=== PATIENT | male | born 1995 | race Caucasian/White ===

== ENCOUNTER → 2017-02-20 | Outpatient (CLI) | payer BC ==
--- NOTE | 2017-02-20 09:06 | DIAGNOSTIC IMAGING REPORT ---
CT OF THE ABDOMEN AND PELVIS WITHOUT CONTRAST CLINICAL HISTORY: Left inguinal pain. Possible hernia. COMPARISON STUDY: No previous studies for comparison. TECHNIQUE: Axial images of the abdomen and pelvis were obtained without IV contrast. Images were reviewed in the axial, sagittal, and coronal planes. FINDINGS: Lung bases are clear. No renal, ureteral or bladder calculi are identified. Pelvic calcifications reflect phleboliths. There is no hydronephrosis. Evaluation of the abdomen and pelvis is suboptimal on this unenhanced exam. The liver, spleen, adrenal glands and pancreas are normal. There is no evidence for a bowel obstruction. No adenopathy or ascites is present. No inguinal hernia is identified by CT. There is subtle infiltration anterior to the left spermatic cord which is likely postsurgical. There is no fluid collection. Skeletal structures are unremarkable. IMPRESSION: 1. No acute process within the abdomen or pelvis on unenhanced exam. 2. No inguinal hernia identified. 3. Subtle subcutaneous infiltration anterior to the left spermatic cord which likely reflects expected postsurgical findings. No fluid collection. Electronically signed by: Perfecto Dobbs M.D. 02/20/2017 9:05 AM Dictated Date/Time: 02/20/2017 8:59 AM
== END | disposition home or self-care (01) ==
LOC: C.CTS 08:49
PROVIDERS: ATTEND Family Medicine
DX: R10.32 Left lower quadrant pain (principal)

== ENCOUNTER 2017-12-10 13:18 | Emergency (ER) | payer BC ==
[~2017-12-10] VITALS: Ht 175.3 cm; Wt 66.7 kg
[2017-12-10 13:22] VITALS: TEMP 37.1; Ht 175.3 cm; Wt 66.7 kg
[2017-12-10] MEDS ORDERED: SODIUM CHLORIDE 0.9% 1000ML 1,000 ML IV STA (14:09)
[2017-12-10] MEDS ORDERED: KETOROLAC TROMETHAMINE 30 MG/ML VIAL IV STA (14:09)
--- NOTE | 2017-12-10 14:21 | EMERGENCY ROOM VISIT NOTE ---
History First contact with patient: 13:49 Chief Complaint: RIB PAIN Stated Complaint: SHARP PAIN IN LEFT LUNG WHEN BREATHING History of Present Illness The patient is a 22 year old male with hx of exercise induced asthma who presents to the Emergency Room with complaints of L sided chest/rib pain that started around 12:30pm today. Described as sharp 8/10 and lasted about 45 minutes. Pain improved on the way to the ED and now 1-2/10 and dull. Associated with mild dizziness and sob. Denies any trauma or falls. No recent long drives/ travelling. No known sick contacts. Was sitting and working at the time it started. Otherwise asymptomatic. Takes albuterol and marii. Review of Systems see below Constitutional: No fever Respiratory: + shortness of breath Cardiovascular: + chest pain (L sided rib/chest pain) Abdomen: No pain, No nausea, No vomiting, No diarrhea, No constipation Genitourinary - Male: No dysuria Social History Smoking Status: Never Smoker Current/Historical Medications Scheduled Fexofenadine Hcl (Marii Allergy), 1 TAB PO DAILY Physical Exam Vital Signs Date Time Temp Pulse Resp B/P (MAP) Pulse Ox O2 Delivery O2 Flow Rate FiO2 12/10/17 14:28 55 16 132/66 98 Room Air 12/10/17 13:22 37.1 77 18 143/74 97 Room Air Physical Exam see below General Appearance: no apparent distress Head: normocephalic, atraumatic Eyes: normal inspection ENT: normal ENT inspection Neck: supple Respiratory/Chest: lungs clear, normal breath sounds, + pertinent finding ( L sided 8th rip region TTP) Cardiovascular: regular rate, rhythm, no murmur Abdomen / GI: normal bowel sounds, non tender, soft Back: normal inspection, no CVA tenderness Extremities: normal inspection, no pedal edema Neurologic/Psych: alert Medical Decision & Procedures Laboratory Results 12/10/17 14:28 Red Blood Count 4.98, Mean Corpuscular Volume 86.9, Mean Corpuscular Hemoglobin 31.9, Mean Corpuscular Hemoglobin Concent 36.7, Mean Platelet Volume 9.9, Neutrophils (%) (Auto) 53.8, Lymphocytes (%) (Auto) 36.2, Monocytes (%) (Auto) 6.9, Eosinophils (%) (Auto) 2.1, Basophils (%) (Auto) 0.8, Neutrophils # (Auto) 2.57, Lymphocytes # (Auto) 1.73, Monocytes # (Auto) 0.33, Eosinophils # (Auto) 0.10, Basophils # (Auto) 0.04 12/10/17 14:28 Test 12/10/17 14:28 White Blood Count 4.78 K/uL (4.8-10.8) Red Blood Count 4.98 M/uL (4.7-6.1) Hemoglobin 15.9 g/dL (14.0-18.0) Hematocrit 43.3 % (42-52) Mean Corpuscular Volume 86.9 fL (80-100) Mean Corpuscular Hemoglobin 31.9 pg (25-34) Mean Corpuscular Hemoglobin Concent 36.7 g/dl (32-36) Platelet Count 185 K/uL (130-400) Mean Platelet Volume 9.9 fL (7.4-10.4) Neutrophils (%) (Auto) 53.8 % Lymphocytes (%) (Auto) 36.2 % Monocytes (%) (Auto) 6.9 % Eosinophils (%) (Auto) 2.1 % Basophils (%) (Auto) 0.8 % Neutrophils # (Auto) 2.57 K/uL (1.4-6.5) Lymphocytes # (Auto) 1.73 K/uL (1.2-3.4) Monocytes # (Auto) 0.33 K/uL (0.11-0.59) Eosinophils # (Auto) 0.10 K/uL (0-0.5) Basophils # (Auto) 0.04 K/uL (0-0.2) RDW Standard Deviation 41.3 fL (36.4-46.3) RDW Coefficient of Variation 12.9 % (11.5-14.5) Immature Granulocyte % (Auto) 0.2 % Immature Granulocyte # (Auto) 0.01 K/uL (0.00-0.02) Anion Gap 7.0 mmol/L (3-11) Est Creatinine Clear Calc Drug Dose 114.8 ml/min Estimated GFR () 130.4 Estimated GFR (Non- 112.5 BUN/Creatinine Ratio 16.0 (10-20) Calcium Level 9.2 mg/dl (8.5-10.1) Total Bilirubin 2.1 mg/dl (0.2-1) Direct Bilirubin 0.3 mg/dl (0-0.2) Aspartate Amino Transf (AST/SGOT) 25 U/L (15-37) Alanine Aminotransferase (ALT/SGPT) 26 U/L (12-78) Alkaline Phosphatase 60 U/L (45-117) Troponin I < 0.015 ng/ml (0-0.045) Total Protein 7.4 gm/dl (6.4-8.2) Albumin 4.5 gm/dl (3.4-5.0) Lipase 120 U/L (73-393) Medications Administered Medications (Trade) Dose Ordered Sig/Shen Route Start Time Stop Time Status Last Admin Dose Admin Sodium Chloride 1,000 ml @ 999 mls/hr Q1H1M STAT IV 12/10/17 14:09 12/10/17 15:09 DC 12/10/17 14:09 999 MLS/HR Medical Decision 22y/oM with hx of exercise induced asthma presents with L sided chest/rib pain x 2 hours. Pain now improved. Based on history and exam findings, concerning for possible costochondritis vs. pneumonia vs. pericarditis vs. ACS/MN vs. PE ( given worsening pain with deep breathing). Based on PERC score of 0, no need for further work up for PE. Also low HEART score for major cardiac events. Consistent with costochondritis based on work up below and clinical improvement. -Ordered CXR - negative -Ordered CBC, BMP, LFT, Lipase - wnl mild elevation in total bili or 1.2 likely in the setting of mild dehydration -Ordered EKG - rate 57 sinus bradycardia -Ordered Troponin - negative -Given NS 1L IVF -Given Toradol 15mg IV for pain - refused due to no pain -Re-evaluated at 15:28 and reports resolution of pain and feeling better post IVF -Pt ready to be discharged home with PCP follow up Medication Reconcilliation Current Medication List: was personally reviewed by me Blood Pressure Screening Patient's blood pressure: Elevated blood pressure Impression Primary Impression: Costochondritis Resident Involvement: Resident Care Provided Care Provided: Adult ED Departure Information Dispostion Home / Self-Care Condition GOOD Patient Instructions [facility] Additional Instructions Follow up with your primary care provider in 1-2 days Take ibuprofen up to 800mg every 8 hours as needed for pain on a full stomach School Instructions Additional School Instructions: Patient evaluated for medical condition in the ED on 12/10/17 please excuse for missing school.
--- NOTE | 2017-12-10 14:30 | DIAGNOSTIC IMAGING REPORT ---
CHEST ONE VIEW PORTABLE CLINICAL HISTORY: CHEST PAIN dyspnea COMPARISON STUDY: No previous studies for comparison. FINDINGS: The bones soft tissues and hemidiaphragms are normal. The cardiomediastinal silhouette is normal. The lungs are clear. The pulmonary vasculature is normal. IMPRESSION: Negative chest. The above report was generated using voice recognition software. It may contain grammatical, syntax or spelling errors. Electronically signed by: Jonny Beavers M.D. 12/10/2017 2:29 PM Dictated Date/Time: 12/10/2017 2:28 PM
[2017-12-10] MEDS ORDERED: FEXO1TAB49 PO (15:02)
[2017-12-10 15:12] LABS: ALBUMIN 4.5 gm/dl (3.4-5.0); ALT/SGPT 26 U/L (12-78); AST/SGOT 25 U/L (15-37); BLOOD UREA NITROGEN 15 mg/dl (7-18); CALCIUM 9.2 mg/dl (8.5-10.1); CARBON DIOXIDE 26 mmol/L (21-32); CREATININE 0.96 mg/dl (0.60-1.40); GLUCOSE 80 mg/dl (70-99); LIPASE 120 U/L (73-393); POTASSIUM 3.6 mmol/L (3.5-5.1); SODIUM 139 mmol/L (136-145)
[2017-12-10 15:17] LABS: ALKALINE PHOSPHATASE 60 U/L (45-117); TOTAL PROTEIN 7.4 gm/dl (6.4-8.2)
[2017-12-10 15:30] LABS: BASO % 0.8 %; BASO ABS # 0.04 K/uL (0-0.2); EOS % 2.1 %; HEMATOCRIT 43.3 % (42-52); HEMOGLOBIN 15.9 g/dL (14.0-18.0); IG# 0.01 K/uL (0.00-0.02); LYMPH % 36.2 %; LYMPH ABS # 1.73 K/uL (1.2-3.4); MEAN CELL VOLUME 86.9 fL (80-100); MEAN CORPUSCULAR HEMOGLOBIN 31.9 pg (25-34); MEAN CORPUSCULAR HGB CONC 36.7 g/dl (32-36); MEAN PLATELET VOLUME 9.9 fL (7.4-10.4); MONO % 6.9 %; MONO ABS # 0.33 K/uL (0.11-0.59); NEUT % 53.8 %; NEUT ABS # 2.57 K/uL (1.4-6.5); PLATELET COUNT 185 K/uL (130-400); RED CELL DISTRIBUTION WIDTH CV 12.9 % (11.5-14.5); RED CELL DISTRIBUTION WIDTH SD 41.3 fL (36.4-46.3); WHITE BLOOD COUNT 4.78 K/uL (4.8-10.8)
[2017-12-10 16:16] VITALS: BP 128/67; PULSE 61; O2SAT 98
--- NOTE | 2017-12-10 16:22 | EMERGENCY ROOM VISIT NOTE ---
History Report prepared by Greg: Neeraj Santos Under the Supervision of: Dr. Bryson Matta M.D. First contact with patient: 13:49 Chief Complaint: RIB PAIN Stated Complaint: SHARP PAIN IN LEFT LUNG WHEN BREATHING History of Present Illness The patient is a 22 year old male who presents to the Emergency Room with complaints of sudden onset left rib pain starting around 1230 The patient states that the pain was an 8/10 in severity and sharp, though it is now a 1/10 and dull. He states that the pain is worse with breathing. The patient reports that he has been mildly dizzy and short of breath. He denies any recent trauma, and he states that the pain came on while studying at a computer. The patient denies any recent long travel or exposure to sickness. He denies any cough. The patient has a history of asthma, and he states that he uses an inhaler daily, though he has had no problems with it recently. He denies any family history of heart attacks at a young age, and he does not smoke or use drugs. He notes that uses alcohol occasionally. The patient states that he works out regularly, and the last time he worked out was three days ago, and it was nothing out of the ordinary for him. Source of History: patient Onset: 1230 Position: other (left rib) Symptom Intensity: 8/10 now a 1/10 Quality: sharp, dull Timing: other (sudden) Modifying Factors (Worsening): breathing Associated Symptoms: + SOB, No cough Note: Associated symptoms: Dizziness Review of Systems See HPI for pertinent positives and negatives. A total of ten systems were reviewed and were otherwise negative. Past Medical & Surgical Medical Problems: (1) Asthma Social History Smoking Status: Never Smoker Alcohol Use: occasionally Housing Status: lives with roommate Occupation Status: [employer] student Current/Historical Medications Scheduled Fexofenadine Hcl (Marii Allergy), 1 TAB PO DAILY Physical Exam Vital Signs Date Time Temp Pulse Resp B/P (MAP) Pulse Ox O2 Delivery O2 Flow Rate FiO2 12/10/17 16:16 61 18 128/67 98 12/10/17 14:28 55 16 132/66 98 Room Air 12/10/17 13:22 37.1 77 18 143/74 97 Room Air Physical Exam GENERAL: Awake, alert, well-appearing, in no distress HENT: Normocephalic, atraumatic. Oropharynx unremarkable. EYES: Normal conjunctiva. Sclera non-icteric. NECK: Supple. No nuchal rigidity. FROM. No JVD. RESPIRATORY: Clear to auscultation. CARDIAC: Regular rate, normal rhythm. Extremities warm and well perfused. Pulses equal. ABDOMEN: Soft, non-distended. No tenderness to palpation. No rebound or guarding. No masses. RECTAL: Deferred. MUSCULOSKELETAL: Chest examination with mild reproducible anterior CW ttp. The back is symmetrical on inspection without obvious abnormality. There is no CVA tenderness to palpation. No joint edema. LOWER EXTREMITIES: Calves are equal size bilaterally and non-tender. No edema. No discoloration. NEURO: Normal sensorium. No sensory or motor deficits noted. SKIN: No rash or jaundice noted. Medical Decision & Procedures ER Provider Diagnostic Interpretation: Radiology results as stated below per my review and radiologist interpretation: CHEST ONE VIEW PORTABLE CLINICAL HISTORY: CHEST PAIN dyspnea COMPARISON STUDY: No previous studies for comparison. FINDINGS: The bones soft tissues and hemidiaphragms are normal. The cardiomediastinal silhouette is normal. The lungs are clear. The pulmonary vasculature is normal. IMPRESSION: Negative chest. The above report was generated using voice recognition software. It may contain grammatical, syntax or spelling errors. Electronically signed by: Jonny Beavers M.D. 12/10/2017 2:29 PM Dictated Date/Time: 12/10/2017 2:28 PM Laboratory Results 12/10/17 14:28 Red Blood Count 4.98, Mean Corpuscular Volume 86.9, Mean Corpuscular Hemoglobin 31.9, Mean Corpuscular Hemoglobin Concent 36.7, Mean Platelet Volume 9.9, Neutrophils (%) (Auto) 53.8, Lymphocytes (%) (Auto) 36.2, Monocytes (%) (Auto) 6.9, Eosinophils (%) (Auto) 2.1, Basophils (%) (Auto) 0.8, Neutrophils # (Auto) 2.57, Lymphocytes # (Auto) 1.73, Monocytes # (Auto) 0.33, Eosinophils # (Auto) 0.10, Basophils # (Auto) 0.04 12/10/17 14:28 Test 12/10/17 14:28 White Blood Count 4.78 K/uL (4.8-10.8) Red Blood Count 4.98 M/uL (4.7-6.1) Hemoglobin 15.9 g/dL (14.0-18.0) Hematocrit 43.3 % (42-52) Mean Corpuscular Volume 86.9 fL (80-100) Mean Corpuscular Hemoglobin 31.9 pg (25-34) Mean Corpuscular Hemoglobin Concent 36.7 g/dl (32-36) Platelet Count 185 K/uL (130-400) Mean Platelet Volume 9.9 fL (7.4-10.4) Neutrophils (%) (Auto) 53.8 % Lymphocytes (%) (Auto) 36.2 % Monocytes (%) (Auto) 6.9 % Eosinophils (%) (Auto) 2.1 % Basophils (%) (Auto) 0.8 % Neutrophils # (Auto) 2.57 K/uL (1.4-6.5) Lymphocytes # (Auto) 1.73 K/uL (1.2-3.4) Monocytes # (Auto) 0.33 K/uL (0.11-0.59) Eosinophils # (Auto) 0.10 K/uL (0-0.5) Basophils # (Auto) 0.04 K/uL (0-0.2) RDW Standard Deviation 41.3 fL (36.4-46.3) RDW Coefficient of Variation 12.9 % (11.5-14.5) Immature Granulocyte % (Auto) 0.2 % Immature Granulocyte # (Auto) 0.01 K/uL (0.00-0.02) Anion Gap 7.0 mmol/L (3-11) Est Creatinine Clear Calc Drug Dose 114.8 ml/min Estimated GFR () 130.4 Estimated GFR (Non- 112.5 BUN/Creatinine Ratio 16.0 (10-20) Calcium Level 9.2 mg/dl (8.5-10.1) Total Bilirubin 2.1 mg/dl (0.2-1) Direct Bilirubin 0.3 mg/dl (0-0.2) Aspartate Amino Transf (AST/SGOT) 25 U/L (15-37) Alanine Aminotransferase (ALT/SGPT) 26 U/L (12-78) Alkaline Phosphatase 60 U/L (45-117) Troponin I < 0.015 ng/ml (0-0.045) Total Protein 7.4 gm/dl (6.4-8.2) Albumin 4.5 gm/dl (3.4-5.0) Lipase 120 U/L (73-393) Laboratory results reviewed by me Medications Administered Medications (Trade) Dose Ordered Sig/Shen Route Start Time Stop Time Status Last Admin Dose Admin Sodium Chloride 1,000 ml @ 999 mls/hr Q1H1M STAT IV 12/10/17 14:09 12/10/17 15:09 DC 12/10/17 14:09 999 MLS/HR ECG Per My Interpretation Indication: chest pain Rate (beats per minute): 57 Rhythm: sinus bradycardia Findings: no acute ischemic change, other (normal axis) ED Course 1349: The patient was evaluated in room C6. A complete history and physical exam was performed by the resident. 1610: I evaluated the patient. Discussed results and discharge instructions: He verbalized understanding and agreement. The patient is ready for discharge. Medical Decision I reviewed the patient's past medical history, medications, and the nursing notes as described above. Differential diagnosis: Etiologies such as cardiac ischemia, aortic dissection, pulmonary embolism, pneumonia, pneumothorax, musculoskeletal, infections, pericarditis, myocarditis , esophageal rupture, gastrointestinal, as well as others were entertained. The patient is a 22-year-old gentleman who presents emergency department with reproducible chest pain per hpi. On arrival the patient is well-appearing in no acute distress, afebrile stable vital signs. On exam the patient has mild reproducible left anterior chest wall tenderness. EKG unremarkable. No GA depressions or ST elevations. Negative Spodick's sign. troponin negative. Labs otherwise unremarkable. Chest x-ray negative. Heart score 0, low risk, acs unlikely. PERC negative PE not likely. Not positional, pericarditis not likely. No tearing pain and equal pulses, dissection not likely. Given reproducible nature symptoms most consistent with a costochondritis. Of note patient's pain resolved without any intervention. Advised to take ibuprofen if pain returns. Findings and plan for follow-up reviewed with patient. Patient agreeable and d/c 'd per discharge instructions. Medication Reconcilliation Current Medication List: was personally reviewed by me Blood Pressure Screening Patient's blood pressure: Elevated blood pressure Blood pressure disposition: Elevated BP felt to be situational Impression Primary Impression: Costochondritis Scribe Attestation The scribe's documentation has been prepared under my direction and personally reviewed by me in its entirety. I confirm that the note above accurately reflects all work, treatment, procedures, and medical decision making performed by me. Departure Information Dispostion Home / Self-Care Referrals [facility] (PCP) Forms WORK / SCHOOL INSTRUCTIONS, HOME CARE DOCUMENTATION FORM, IMPORTANT VISIT INFORMATION Patient Instructions [facility] Additional Instructions Follow up with your primary care provider/S in 1-2 days Take ibuprofen up to 800mg every 8 hours as needed for pain on a full stomach School Instructions Additional Instructions: Patient evaluated for medical condition in the ED on 12/10/17 please excuse for missing school.
== END 2017-12-10 16:18 | disposition home or self-care (01) ==
LOC: C.EDB 13:19 → C.EDC 16:18
DX: R07.81 Pleurodynia (principal); R03.0 Elevated blood-pressure reading, without diagnosis of hypertension; R06.02 Shortness of breath; R42 Dizziness and giddiness; J45.909 Unspecified asthma, uncomplicated; Z79.899 Other long term (current) drug therapy